=== PATIENT | male | born 1945 | race Caucasian/White ===

== ENCOUNTER 2016-10-12 09:55 | Day surgery (SDC) | payer OTHER, MEDICARE ==
[~2016-10-12] VITALS: Ht 177.8 cm; Wt 96.4 kg
[~2016-10-12 09:55] MED LIST: ASPIR-LOW81 MG PO; ENALAPRIL MALEAT5 MG PO; FINASTERIDE5 MG PO; METOPROLOL TART25 MG PO; MULTIVITAMIN1 EAC2 PO; OMEPRAZOLE20 M2 PO; SIMVASTATIN40 MG PO; TERAZOSIN HCL2 MG PO; VITAMIN B-12500 MC5 SL
[2016-10-12] MEDS ORDERED: BAYER CHEWABLE81 MG PO (10:48)
[2016-10-12 18:23] VITALS: BP 167/83
[2016-10-12 19:20] VITALS: BP 166/75
[2016-10-13 00:36] VITALS: BP 143/70
[2016-10-13 04:00] VITALS: BP 140/72
[2016-10-13 07:05] LABS: EOSINOPHIL (%) 0.5 % (0-5); HEMATOCRIT 40.4 % (38.0-50.0); IMMATURE GRANULOCYTE (%) 0.2 % (0.0-0.7); INSTRUMENT ABS NEUTROPHIL CT 5.1 K/uL; LYMPHOCYTE COUNT 1.1 K/uL (1.0-2.8); MCH 30.3 PG (29.0-34.0); MCHC 34.9 G/DL (30.0-36.0); MCV 86.7 FL (86-99); MEAN PLAT.VOLUME 10.2 uM^3 (9.0-12.4); MONOCYTE (%) 4.3 % (3-12); MONOCYTE COUNT 0.3 K/uL (0-0.8); NEUTROPHIL (%) 78.1 % (45-76); NEUTROPHIL COUNT 5.1 K/uL (1.8-6.4); PLATELET COUNT 95 K/uL (156-360); RBC DIS.WIDTH-CV 13.5 % (11.8-14.6); RBC DIS.WIDTH-SD 42.5 % (39-53); RED BLOOD COUNT 4.66 M/uL (4.00-5.50); WHITE BLOOD COUNT 6.5 K/uL (4.1-10.2)
[2016-10-13 07:34] VITALS: BP 142/72
[2016-10-13 07:54] LABS: ANION GAP 8 MEQ/L (2-14); CHLORIDE 106 MEQ/L (99-109); GFR ESTIMATE (CALCULATED) > 59 mL/min/; GLUCOSE 106 mg/dL (70-99); SAMPLE HEMOLYSIS CHECK 0; SAMPLE ICTERIC CHECK 0; SAMPLE LIPEMIA CHECK 0; SODIUM 139 MEQ/L (136-147); UREA NITROGEN (BUN) 13 mg/dL (9-23)
[2016-10-13] MEDS ORDERED: ASPIR-LOW81 MG PO (10:15)
[2016-10-13] MEDS ORDERED: CLOPIDOGREL75 MG PO (10:15)
== END 2016-10-13 11:56 | disposition home or self-care (01) ==
LOC: CATH 09:55 → 2SOUTH 12:49 → 4EAST 16:47
PROVIDERS: Internal Medicine Cardiovascular Disease
DX: I25.10 Atherosclerotic heart disease of native coronary artery without angina pectoris (principal); D69.6 Thrombocytopenia, unspecified; R00.1 Bradycardia, unspecified; I10 Essential (primary) hypertension; E78.5 Hyperlipidemia, unspecified; Z79.82 Long term (current) use of aspirin; Z82.49 Family history of ischemic heart disease and other diseases of the circulatory system
CPT/HCPCS: 93458; 93571; C9600; 80048; 85025; 93005; C1725; C1769; C1874; C1887; G0378; J0153; J1644; J2250; J3010; J3246; J7030; J7050